=== PATIENT | male | born 1980 | race Caucasian/White ===

== ENCOUNTER → 2020-05-11 | Outpatient (CLI) | payer OTHER ==
--- NOTE | 2020-05-11 16:23 | CT ---
EXAM: Abdomen/Pelvis w/Contrast CLINICAL HISTORY: LEFT UPPER QUADRANT PAIN COMPARISON STUDY: Abdomen ultrasound from May 27, 2010 TECHNICAL: Post IV contrast images were performed through the abdomen and pelvis. Oral contrast was not given. Sagittal and coronal reconstructions were obtained. FINDINGS: The visible portion of the chest is negative. The heart is not enlarged. The liver, spleen, pancreas, adrenal glands, and kidneys enhance appropriately and demonstrate no acute abnormality. The gallbladder is intact and there is no evidence of biliary dilatation. There is no bowel obstruction or free air. There is no acute inflammatory process. The appendix is visible and normal. The aorta, IVC and retroperitoneum are negative. Structures within the pelvis are negative. The visible osseous structures are negative. IMPRESSION: NO ACUTE INTRA-ABDOMINAL OR PELVIC ABNORMALITY. This exam was performed according to our departmental dose-optimization program, which includes automated exposure control, adjustment of the mA and/or kV according to patient size and/or use of iterative reconstruction technique. Electronically signed by: Napoleon Victoria MD 05/11/2020 4:21 PM CDT
== END ==
LOC: CT 13:17
PROVIDERS: ATTEND Nurse Practitioner
DX: R10.32 Left lower quadrant pain (principal)

== ENCOUNTER → 2020-09-22 | Outpatient (CLI) | payer SELFPAY ==
--- NOTE | 2020-09-23 14:08 | CT ---
EXAM DESCRIPTION: Cardiac Calcium Scoring Screen: Computed Tomography. CLINICAL HISTORY: Coronary Artery Calcium Scoring COMPARISON: None. TECHNIQUE: Spiral-axial scans at 2.5 X 0.4 mm intervals through the coronary arteries without IV contrast. Special algorithm was used, and cardiac gating. No reconstructions. Total Exam DLP: 147 mGy-cm. This exam was performed according to our departmental CT dose-optimization program which includes automated exposure control, adjustment of the mA and/or kV according to patient size and/or use of iterative reconstruction technique; to reduce radiation dose to as low as reasonably achievable (ALARA). Some images may have been skipped or repeated due to the heart rhythm or respiration. FINDINGS: The patient has a total Agatston calcium score of 0. This places the patient in the 0 percentile in comparison to a group of patients asymptomatic for coronary artery disease with the same age and gender. This means that no male patients of age range 41-45 have calcium scores lower than the patient. The included mediastinum, bilateral sarah, and included lima-hilar lung are unremarkable. IMPRESSION: 1. Total coronary artery calcium score of 0. 0 percentile for age and gender. 2. The included mediastinum, lung, and lima-hilar areas are unremarkable. 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
== END ==
LOC: CT 13:17
PROVIDERS: ATTEND General Practice
DX: R07.9 Chest pain, unspecified (principal)